=== PATIENT | female | born 1975 | race Caucasian/White ===

== ENCOUNTER 2024-12-28 10:40 | Outpatient (CLI) | payer BC, SELFPAY ==
--- OUTSIDE RECORDS SUMMARY | 2024-12-28 12:17 | XMS_ITS | Clinical Summary ---
Author Organization [facility] Address [address] [place] [address] Phone Care Team Providers Care Assistant Analyst Name Role Phone Roxy Ramirez MD Primary Care Provider + Medications No known medications Immunizations Immunization Administration Dates Next Due TDAP Vaccine 03/07/2024 Family History Medical History Relation Name Comments Ovarian Cancer Maternal Grandmother Relation Name Status Comments Maternal Grandmother Social History Tobacco Use Types Packs/Day Years Used Date Smoking Tobacco: Never Assessed Comments No Sex and Gender Information Value Date Recorded Sex Assigned at Not on file Legal Sex Female 11:23 PM CDT Gender Identity Not on file Sexual Orientation Not on file Last Filed Vital Signs Vital Sign Reading Time Taken Comments Blood Pressure 122/68 03/07/2024 10:58 AM CDT Pulse 72 03/07/2024 10:58 AM CDT Temperature 36.4 C (97.6 F) 03/07/2024 10:35 AM CDT Respiratory Rate 18 03/07/2024 10:58 AM CDT Oxygen Saturation 99% 03/07/2024 10:58 AM CDT Inhaled Oxygen Concentration - - Weight 86.2 kg (190 lb) 03/07/2024 10:35 AM CDT Height 157.5 cm (5' 2 ) 03/07/2024 10:35 AM CDT Body Mass Index 34.75 03/07/2024 10:35 AM CDT Plan of Treatment Health Maintenance Due Date Last Done Comments Hepatitis C Virus (HCV) Screening 1976 Hepatitis B Immunization (1 of 3 - 19+ 3-dose series) 1995 Pap Smear 1997 Cervical Cancer Screening (CCS) 2006 HPV/Cotest 2006 Colonoscopy 2021 Colorectal Cancer Screening 2021 Mammogram 05/14/2022 05/14/2021, 04/12, 05/07/2019, Additional history exists Influenza Immunization (#1) 2024 07/23/2021, 0 10/20/2017 SARS-COV-2 Immunization ( season) 2024 01/15/2021, 12/23/2020 Immunochemical Fecal Occult Blood 2026 04/20/2020 Td Immunization Every 10 Years (Adults With 1 Tdap) 03/07/2034 03/07/2024 Respiratory Syncytial Virus (RSV) Immunization (Adult) (1 - 1-dose 75+ series) 2051 Discussion re Starting/Frequency of Mammograms Completed 05/14/2021, 05/09/2020, 05/07/2019, Additional history exists DTaP/Tdap/Td Immunization Discontinued 03/07/2024 TdaP Immunization Discontinued 03/07/2024 Meningococcal Immunization (ACWY) Aged Out No longer eligible based on patient's age to complete this topic Pneumococcal Immunization Combined Aged Out No longer eligible based on patient's age to complete this topic Rotavirus Immunization Aged Out No lo nger eligible based on patient's age to complete this topic Procedures Procedure Name Priority Date/Time Associated Diagnosis Comments MAURY SCREENING BILATERAL DIGITAL W CAD W BETH Routine 05/14/2021 9:26 AM CDT Encounter for screening mammogram for malignant neoplasm of breast from Last 3 Months or Most Recently Relevant to Health Maintenance Results * MAURY SCREENING BILATERAL DIGITAL W CAD W BETH (05/14/2021 9:26 AM CDT) Anatomical Region Laterality Modality breast Bilateral Mammography 05/14/2021 8:56 AM CDT Narrative 05/14/2021 5:55 PM CDT - MAURY SCREENING BILATERAL DIGITAL W CAD W BETH BILATERAL DIGITAL SCREENING MAMMOGRAM 3D/2D WITH CAD WITH MEDIOLATERAL OBLIQUE CRANIOCAUDAL: 05/14/2021 The study was acquired using digital technology and interpreted from soft copy. Current study was also evaluated with ICAD version 7.2. 2D digital mammographic views, as well as 3D digital tomosynthesis were performed in the CC and MLO projections. CLINICAL: Routine screening. Patient has no complaints. No personal history of cancer. Maternal grandmother had ovarian cancer. COMPARISONS: Comparison is made to exams dated: 05/09/2020, 05/07/2019, and 05/04/2018 [facility]. BREAST TISSUE:There are scattered fibroglandular densities in both breasts. FINDINGS: No significant masses, calcifications, or other findings are seen in either breast. There has been no significant interval change. IMPRESSION: BI-RAD 1 NEGATIVE There is no mammographic evidence of malignancy. A 1 year screening mammogram is recommended. The patient has been or will be contacted. The patient will be entered into a reminder system with a target due date of 1 year for her next screening exam. Electronically signed by: Shashank ayala/sil:05/14/2021 17:08:51 Furniture Assembler And Installer(s): RT Michelle(R)(M), [facility] letter sent: Normal Exam Reading location: [facility] BI-RADS: 1 Negative Procedure Note Shashank Loyd MD - 05/14/2021 - MAURY SCREENING BILATERAL DIGITAL W CAD W BETH BILATERAL DIGITAL SCREENING MAMMOGRAM 3D/2D WITH CAD WITH MEDIOLATERAL OBLIQUE CRANIOCAUDAL: 05/14/2021 The study was acquired using digital technology and interpreted from soft copy. Current study was also evaluated with ICAD version 7.2. 2D digital mammographic views, as well as 3D digital tomosynthesis were performed in the CC and MLO projections. CLINICAL: Routine screening. Patient has no complaints. No personal history of cancer. Maternal grandmother had ovarian cancer. COMPARISONS: Comparison is made to exams dated: 05/09/2020, 05/07/2019, and 05/04/2018 [facility]. BREAST TISSUE:There are scattered fibroglandular densities in both breasts. FINDINGS: No significant masses, calcifications, or other findings are seen in either breast. There has been no significant interval change. IMPRESSION: BI-RAD 1 NEGATIVE There is no mammographic evidence of malignancy. A 1 year screening mammogram is recommended. The patient has been or will be contacted. The patient will be entered into a reminder system with a target due date of 1 year for her next screening exam. Electronically signed by: Shashank ayala/sil:05/14/2021 17:08:51 Furniture Assembler And Installer(s): RT Michelle(R)(M), [facility] letter sent: Normal Exam Reading location: [facility] BI-RADS: 1 Negative Rishi Pedro MD IMG MAMMO ORDERABLES Final Res ult from Last 3 Months or Most Recently Relevant to Health Maintenance Care Teams Assistant Analyst Relationship Specialty Start Date End Date Roxy Ramirez MD [address] [place] [id number] PCP - General Family Medicine 03/17/17
--- OUTSIDE RECORDS SUMMARY | 2024-12-28 12:18 | XMS_ITS | Data Portability ---
Author Organization [place] [facility], Main Office Address [address] [place] [address] Assessment No assessment recorded. Plan of Treatment Reminders Order Date Submit Date Provider Last Modified By Organization Details Last Modified Time Details Appointments None recorded. Lab noninvasive colorectal cancer DNA + occult blood screening, QL, stool 2022 023 [email or web address] [facility] (Cologuard Orders Only), [address], [address], [place], [address], 3 07:59:36 noninvasive colorectal cancer DNA + occult blood screening, QL, stool 2022 023 [email or web address] Not available 3 08:08:32 lipid panel, serum 2022 023 [email or web address] Not available 3 08:08:33 BMP, serum or plasma 2022 023 [email or web address] Not available 3 08:08:33 CBC w/ auto diff 2022 023 [email or web address] Not available 3 08:08:32 TSH, serum or plasma 2022 023 [email or web address] Not available 3 08:08:33 glycohemogl obin, total, blood 2022 023 [email or web address] Not available 3 08:08:33 Referral None recorded. Procedures None recorded. Surgeries None recorded. Imaging None recorded. Medication Orders Ozempic 0.25 mg or 0.5 mg (2 mg/1.5 mL) subcutaneou s pen injector 2022 023 [email or web address] [facility][id number], [address], [place], [place], [id number], 3 19:50:10 phentermine 37.5 mg tablet 2022 023 [facility] #15734, [address], [place], [place], [id number], 3 16:04:39 topiramate 50 mg tablet 2022 023 [facility] #69921, [address], [place], [place], [id number], 3 16:04:36 phentermine 37.5 mg tablet 2022 023 [facility] #85339, [address], [place], [place], [id number], 3 16:04:23 topiramate 25 mg tablet 2022 023 [facility] #73609, [address], [place], [place], [id number], 3 16:04:22 Patient TargetsNo targets recorded. Patient InstructionsNo instructions recorded. Reason for Referral None Reported. Results Created Date Observation Date Name Description Value Unit Range Abnormal Flag Note LastModifiedBy Organization Detail LastModifiedTime 03/24/20 24 03/24/2024 COLOG UARD cologuard result Cancel led - Order d not applic able Not Available [facility] (Cologuard Orders Only) [address], [place], [address], 03/24/2024 11:28:21 Result Notes None recorded. Problems Name Problem SNOMED Code Status Onset Date Resolution Date Notes Provider Name and Address Organization Details Recorded Time Adjustment disorder 96935665 Active Not Available [facility] 3 09:28:30 Metabolic syndrome X 851105427 Active Not Available [facility] 3 09:28:30 Obesity 429874241 Active Not Available [facility] 3 09:28:30 Fatigue 93573002 Active 2022 Roxy Ramirez MD [address] [facility], [address] [address], [place], [address] , [employer] [facility] 3 15:53:21 Acute sinusitis 07046688 Active 2022 Roxy Ramirez MD [address] [facility], [facility] [address], [place], [address] , [employer] [facility] 3 10:28:27 Abnormal weight 55124599 Active 2022 Cristal Marks RN null, [employer] [facility] [employer] [facility] 3 16:58:05 Problem Notes None recorded. Medical Equipment None Reported. Allergies Allergen ID Allergen Name Allergen Category Reaction Reaction Severity Criticality Documentation Date Start Date Code Code System Note Provider Name and Address Organization Details Recorded Time Product containin g penicilli n (product) medicatio n rash Not available Not available 12/10/2022 69662 8001 SNOMED Not Available [facility] 3 09:32:32 Medications Name Sig Start Date Stop Date Status Note LastModified by Organization Details LastModified Time cetirizine 10 mg tablet 02/18 completed Not Available Not Available Not Available azithromyci n 250 mg tablet TAKE 2 TABLETS (500 MG) BY ORAL ROUTE ONCE DAILY FOR 1 DAY THEN 1 TABLET (250 MG) BY ORAL ROUTE ONCE DAILY FOR 4 DAYS 03/25 completed Not Available Not Available Not Available prednisone 20 mg tablet 2 po qday with food x 5 days active Not Available Not Available No t Available Tubersol 5 tub. unit/0.1 mL intradermal injection solution 07/15 completed Not Available Not Available Not Available metronidazo le 250 mg tablet 10/20 completed Not Available Not Available Not Available phentermine 15 mg capsule TK 1 C PO QD 02/18 completed Not Available Not Available Not Available topiramate 25 mg tablet 1 po qhs x 7 days then 1 po bid x 7 days then 1 po qAM and 2 po qhs x 7 days then 2 po bid 2022 active Not Available Not Available Not Avai lable phentermine 37.5 mg tablet TAKE 1 TABLET BY MOUTH EVERY DAY active Not Available Not Available No t Available Tamiflu 75 mg capsule TK 1 C PO BID TAT active Not Available Not Available No t Available prednisone 10 mg tablets in a dose pack FOLLOW PACKAGE DIRECTION S 02/18 completed Not Available Not Available Not Available meclizine 25 mg tablet Take 1 tablet 3 times a day by oral route as needed. active Not Available Not Available No t Available polymyxin B sulfate 10,000 unit-trimet hoprim 1 mg/mL eye drops 04/29 completed Not Available Not Available Not Available methylpredn isolone 4 mg tablets in a dose pack 07/01 completed Not Available Not Available Not Available azithromyci n 500 mg tablet TAKE 1 TABLET BY MOUTH ONCE DAILY FOR 5 DAYS 05/21 completed Not Available Not Available Not Available escitalopra m 10 mg tablet TK 1 T PO QD 11/21 completed Not Available Not Available Not Available escitalopra m 20 mg tablet TK 1 T PO ONCE D 04/29 completed 10/13 tab po qday Not Available Not Available Not Available Tri-Sprinte c (28) 0.18 mg(7)/0.215 mg(7)/0.25 mg(7)-35 mcg tablet TK 1 T PO D 02/07 completed Not Available Not Available Not Available topiramate 50 mg tablet TAKE 1 TABLET BY MOUTH TWICE DAILY active Not Available Not Available No t Available Ozempic 0.25 mg or 0.5 mg (2 mg/1.5 mL) subcutaneou s pen injector 0.25 mg sc qweek x 4 weeks then increase to 0.5 mg 2022 active Not Available Not Available Not Avai lable Vitals Date Recorded Body mass index (BMI) Body height Oxygen saturation Oxygen saturation in Arterial blood by Pulse oximetry Heart rate Body temperature Body weight Systolic blood pressure Diastolic blood pressure Provider Name and Address Organization Details Last Updated DateTime 1 32.2 kg/m2 157.48 cm 98 % 98 % 71 /min 98.7 [degF] 14672.2 6 g 118 mm[Hg] 78 mm[Hg] Not Available [facility] 3 09:27:02 Date Recorded Body mass index (BMI) Body height Body weight Provider Name and Address Organization Details Last Updated DateTime 07/01/2022 32.2 kg/m2 157.48 cm 28780.26 g Not Available [facility] 12/10/2022 09:27:05 Date Recorded Body height Body mass index (BMI) Body weight Body temperature Heart rate Oxygen saturation Oxygen saturation in Arterial blood by Pulse oximetry Systolic blood pressure Diastolic blood pressure Provider Name and Address Organization Details Last Updated DateTime 3 157.48 cm 37.7 kg/m2 31911.0 3 g 97.9 [degF] 82 /min 98 % 98 % 122 mm[Hg] 78 mm[Hg] Cristal Marks RN [facility] 3 15:42:04 Date Recorded Body height Body mass index (BMI) Body weight Body temperature Heart rate Oxygen saturation Oxygen saturation in Arterial blood by Pulse oximetry Systolic blood pressure Diastolic blood pressure Provider Name and Address Organization Details Last Updated DateTime 3 157.48 cm 36.6 kg/m2 77276.4 7 g 97.7 [degF] 112 /min 96 % 96 % 130 mm[Hg] 86 mm[Hg] CURTIS Guillen [facility] 3 15:54:31 Date Recorded Body height Body mass index (BMI) Body weight Body temperature Heart rate Oxygen saturation Oxygen saturation in Arterial blood by Pulse oximetry Systolic blood pressure Diastolic blood pressure Provider Name and Address Organization Details Last Updated DateTime 3 157.48 cm 38.8 kg/m2 15531.5 8 g 98.3 [degF] 93 /min 97 % 97 % 134 mm[Hg] 82 mm[Hg] Cristal Marks RN [facility] [employer] [facility] 3 17:00:06 Social History Question Answer Notes LastModified by Organizat ion Details LastModified Time Tobacco Smoking Status Never Smoker Not Available [facility] 12/10/2022 09:24:22 Do You Have An Advance Directive? No MIGRATION.[id number] Information not available 12/10/2022 What Is Your Level Of Alcohol Consumption? Occasional MIGRATION.210694 2178 Information not available 12/10/2022 Do You Wear A Helmet When Biking? Yes MIGRATION.766209 7585 Information not available 12/10/2022 What Is Your Level Of Caffeine Consumption? Moderate MIGRATION.991504 1437 Information not available 12/10/2022 In The 14 Days Before Symptom Onset, Have You Had Close Contact With A Laboratory-confir med COVID-19 While That Case Was Ill? No MIGRATION.671410 8538 Information not available 12/10/2022 In The 14 Days Before Symptom Onset, Have You Had Close Contact With A Person Who Is Under Investigation For COVID-19 While That Person Was Ill? No MIGRATION.430503 5015 Information not available 12/10/2022 What Type Of Diet Are You Following? REGULAR MIGRATION.434300 7849 Information not available 12/10/2022 What Is The Highest Grade Or Level Of School You Have Completed Or The Highest Degree You Have Received? XI79716-9 MIGRATION.579095 6104 Information not available 12/10/2022 What Is Your Occupation? Teacher MIGRATION.766927 7231 Information not available 12/10/2022 How Many Days Of Moderate To Strenuous Exercise, Like A Brisk Walk, Did You Do In The Last 7 Days? 5 MIGRATION.121043 0071 Information not available 12/10/2022 On Those Days That You Engage In Moderate To Strenuous Exercise, How Many Minutes, On Average, Do You Exercise? 60 MIGRATION.391427 6675 Information not available 12/10/2022 Have There Been Any Changes To Your Family Or Social Situation? No MIGRATION.025479 8437 Information not available 12/10/2022 What Is The Fluoride Status Of Your Home? Unknown MIGRATION.311088 0787 Information not available 12/10/2022 Are There Any Guns Present In Your Home? No MIGRATION.132021 0092 Information not available 12/10/2022 Do You Use Insect Repellent Routinely? Yes MIGRATION.294431 9548 Information not available 12/10/2022 Do You Have A Medical Power Of Varnish Melter Helper? No MIGRATION.489330 9497 Information not available 12/10/2022 What Was The Date Of Your Most Recent Tobacco Screening? 02/18/2023 [email or web address] Information not available 02/18/2023 Have You Ever Been Counseled For Unhealthy Alcohol Use? No MIGRATION.109303 7491 Information not available 12/10/2022 Do You Have Any Pets? Yes MIGRATION.141776 7887 Information not available 12/10/2022 What Is Your Relationship Status? Single Engaged MIGRATION.377573 2262 Information not available 12/10/2022 Do You Use Your Seat Belt Or Car Seat Routinely? Yes MIGRATION.802941 1484 Information not available 12/10/2022 Do You Have Smoke And Carbon Monoxide Detectors In Your Home? Yes MIGRATION.149161 3907 Information not available 12/10/2022 Are You Passively Exposed To Smoke? Yes MIGRATION.115837 9371 Information not available 12/10/2022 Are There Any Smokers In Your House? No MIGRATION.141409 3937 Information not available 12/10/2022 Do You Participate In Social Tour Desk? Yes MIGRATION.644925 7735 Information not available 12/10/2022 What Types Of Sporting Activities Do You Participate In? None MIGRATION.833845 9956 Information not available 12/10/2022 Do You Feel Stressed (tense, Restless, Nervous, Or Anxious, Or Unable To Sleep At Night)? XL0188-8 MIGRATION.375486 8328 Information not available 12/10/2022 Do You Use Any Illicit Or Recreational Drugs? No MIGRATION.652053 4351 Information not available 12/10/2022 Do You Use Sunscreen Routinely? Yes MIGRATION.289510 2762 Information not available 12/10/2022 Has Tobacco Cessation Counseling Been Provided? No MIGRATION.657807 8056 Information not available 12/10/2022 Have You Recently Traveled Abroad? No MIGRATION.724052 3395 Information not available 12/10/2022 Are You Currently In School? No MIGRATION.212324 9387 Information not available 12/10/2022 Do You Have Any Dietary Restrictions? No MIGRATION.443629 0238 Information not available 12/10/2022 Do You Or Have You Ever Used Any Other Forms Of Tobacco Or Nicotine? No MIGRATION.641142 8814 Information not available 12/10/2022 Sex: Unknown Functional Status Question Answer Note LastModified by Organizat ion Details LastModified Time What is your exercise level? Moderate MIGRATION.[id number] 6 Information not available 12/10/2022 Mental Status None recorded. Family History Relationship Description Onset Age of this Age Resolved Age Notes LastModified by Organization Details LastModified Time Mother No current problems or disability [email or web address] Not available 02/18 15:49:31 Maternal Grandmother Malignant tumor of ovary [email or web address] Not available 2022 15:49:42 Medical History No medical history recorded. Gynecological History Statement/Question Response Sexually Active? Y Menses Monthly N STIs/STDs N Current Control Method IUD Breast Problems no Discharge no Obstetrics History GPAL:G 0 P 0 0 0 0 Immunizations Vaccine Type Date Status Note Provider Nam e and Address Organization Details Recorded Time Influenza, split virus, quadrivalent, PF 10/20/2017 completed Not Available [facility] 3 09:32:28 Influenza, split virus, quadrivalent, PF 07/23/2021 completed Not Available [facility] 3 09:32:28 Past Encounters Encounter ID Performer Location Encounter Start Date Encounter Closed Date Diagnosis/Indication Diagnosis SNOMED-CT Code Diagnosis ICD10 Code Diagnosis Note [id number] [facility] Primary Care [address] [place] [address] 05/21/2021 00:00:00 06/10/2021 20:06:37 [id number] [facility] Primary Care [address] [place] [address] 07/23/2021 00:00:00 07/23/2021 18:48:41 [id number] [facility] Primary Care [address] [place] [address] 07/01/2022 00:00:00 07/01/2022 14:33:02 [id number] Roxy Ramirez MD [facility] Primary Care [address] [place] [address] 02/18/2023 15:34:30 02/18/2023 16:17:42 Adult health examination 752307193 Z00.00 Z13.1 Z13.220 Up to date with pap and mammogram with promotion producer Screening for malignant neoplasm of colon 768392603 Z12.11 Fatigue 32428563 R53.83 R63.5 Dietary ma nagement surveillance 923281301 Z71.3 Discussed healthy diet/exerc iseReviewe d potential med s/e, d/c and be seen if any chest pain, sobf/u in 4 weeks or sooner if needed [id number] Roxy Ramirez MD [facility] Primary Care [facility] [address] [facility] [address] [place] [address] 03/25/2023 15:50:19 03/25/2023 17:24:48 Screening for malignant neoplasm of colon 189975215 Z12.11 Dietary ma nagkristie surveillance 637625004 Z71.3 doing wellcontin ue phentermin e 37.5 mg daily for up to 3 months then take 4 week breaktopir amate 50 mg bidf/u in 4 months or sooner if needed [id number] Roxy Ramirez MD [facility] Primary Care [facility] [address] [facility] [address] [place] [address] 09/10/2023 16:51:17 09/10/2023 17:28:32 Dietary management surveillance 076301052 Z71.3 has plateaued on phentermin einsurance does not cover wegovy at this time, she will check coverage after ple given of ozempic 0.25 mg sc qweek x 4 weeks then increase to 0.5 mg sc qweekdiscu ssed potential med s/e and how to use properly Health Concerns Section Related Observation LastModified by Organization Detai ls LastModified Time None Recorded Concern Status LastModified by Organization Details LastModified Time None Recorded Advance Directives Directive N: Payers Encounter Date Sequence Insurance Name Policy Number Policy Bledsoe Covered Member ID Bledsoe Member ID Guarantor Name 02/18/2023 1 [place] CHO[place] [id number] 1 Tressa Arana [id number] Tressa Stewart 03/25/2023 1 [place] [id number] 1 Tressa Arana [id number] Tressa Stewart 09/10/2023 1 [place] [id number] 1 Tressa Rebolledo [place] [id number] Tressa Stewart 09/10/2023 1 [place] [id number] Tressa Stewart [id number] Tressa Stewart Notes Date Note Type Note Provider Name and Address Organization Details Recorded Time 02/18/2023 text/html here for check u p she has tried phentermine in the past for weight loss Roxy Ramirez MD [address], [facility] [address], [place], [address], [employer] 03/11/2023 10:56:12 03/25/2023 text/html doing well on phentermine and topiramate. Down 6 pounds, no chest pain, no sob Roxy Ramirez MD [address], [facility] [address], [place], [address], [employer] 03/25/2023 16:05:29 09/10/2023 text/html doing well on phentermine and topiramate. Down 6 pounds, no chest pain, no sob update 09/10/23: Only uses phentermine occasionally, does not feel it is helpful for weight loss. Her insurance covers ozempic and mounjaro. Roxy Ramirez MD [address], [facility] [address], [place], [address], [employer] 09/10/2023 19:50:23 OBGyn Episode No OBEpisode recorded.
[2024-12-28 19:20] LABS: Hematocrit 43.4 % (37.0-47.0); Mean Corpuscular HGB Conc 32.3 g/dl (32-36); Mean Corpuscular Hemoglobin 32.2 pg (26-34); Mean Corpuscular Volume 99.8 fl (80-100); Mean Platelet Volume 10.9 fl (7.4-10.4); Platelet Count Result 290 k/mm3 (150-375); Red Blood Count 4.35 M/mm3 (4.2-5.4); Red Cell Distribution Width 13.3 % (11.5-14.5); White Blood Count 6.7 K/mm3 (4.5-10.0)
[2024-12-28 20:11] LABS: Alanine Aminotransferase 26 U/L (6-35); Albumin Level 4.5 g/dL (3.5-5.1); Alkaline Phosphatase 74 U/L (38-126); Anion Gap 12 mmol/L (4-12); Aspartate Amino Transferase 55 U/L (14-36); Bilirubin,Total 0.4 mg/dL (0.2-1.3); Blood Urea Nitrogen 13 mg/dL (7-17); Calcium 9.5 mg/dL (8.4-10.2); Carbon Dioxide 22 mmol/L (22-30); Chloride 103 mmol/L (98-107); Cholesterol 238 mg/dL (0-200); Estimated Glomerular Filt Rate > 60; Glucose 83 mg/dL (65-110); HDL Direct 64 mg/dL; Potassium 4.6 mmol/L (3.4-5.0); Sodium 137 mmol/L (137-145); Triglycerides 83 mg/dL (<150)
[2024-12-28 20:22] LABS: LDL Cholesterol Direct 137 mg/dL
[2024-12-28 20:44] LABS: Hemoglobin A1C 5.4 % (<5.7)
== END 2024-12-28 10:41 | disposition home or self-care (01) ==
LOC: ANHBWCLAB 10:41
PROVIDERS: PCP Nurse Practitioner Adult Health; Visit Provider Nurse Practitioner Adult Health
DX: Z13.9 Encounter for screening, unspecified (principal); E66.9 Obesity, unspecified
CPT/HCPCS: 36415; 80053; 80061; 83036; 84443; 85027